=== PATIENT | male | born 1960 | race Two or more races ===

== ENCOUNTER 2024-01-19 09:01 | Day surgery (SDC) | payer MEDICAID ==
[2024-01-18 15:04] LABS: Basophils # (auto) 0.1 10 ^3/uL (0-0.2); Basophils % (auto) 0.8 % (0.0-2.0); Eosinophils # (auto) 0.1 10 ^3/uL (0-0.8); Eosinophils % (auto) 1.1 % (0.0-7.0); Hematocrit 44.4 % (41.0-53.0); Hemoglobin 14.9 g/dL (13.5-17.5); Lymphocytes # (auto) 2.1 10 ^3/uL (0.4-5.4); Lymphocytes % (auto) 19.8 % (10.0-50.0); Mean Corpuscular Hemoglobin 32.7 pg (28.0-32.0); Mean Corpuscular Hgb Conc. 33.6 g/dL (32.0-36.0); Mean Corpuscular Volume 97.3 fL (80.0-100.0); Monocytes # (auto) 0.7 10 ^3/uL (0-1.3); Monocytes % (auto) 7.2 % (0.0-12.0); Neutrophils # (auto) 7.4 10 ^3/uL (1.6-8.6); Neutrophils % (auto) 71.1 % (37.0-80.0); Red Blood Cells 4.57 10^6/uL (4.5-5.90); Red Cell Distribution Width 14.4 % (11.8-14.3); White Blood Cell 10.4 10^3/uL (4.4-10.8)
[2024-01-18 15:19] LABS: INR 0.99 (0.9-1.15); Partial Thromboplastin Time 26.2 SEC (24.5-34.5); Prothrombin Time 10.4 sec (9.3-11.8)
[2024-01-18 15:34] LABS: Alanine Aminotransferase 18 U/L (7-40); Albumin 4.4 g/dL (3.2-4.8); Alkaline Phosphatase 78 U/L (46-116); Anion Gap 4 (5-15); Aspartate Aminotransferase 22 U/L (13-40); BUN/Creatinine Ratio 9.9 (10.0-20.0); Bilirubin, Total 0.4 mg/dL (0.2-1.0); Blood Urea Nitrogen 9 mg/dL (9-23); Carbon Dioxide 27 mmol/L (20-30); Chloride 107 mmol/L (98-107); Glucose 90 mg/dL (74-106); Potassium 4.4 mmol/L (3.5-5.1); Sodium 138 mmol/L (136-145)
[2024-01-18 15:35] LABS: Total Protein 7.3 g/dL (5.7-8.2)
[~2024-01-19] VITALS: Ht 177.8 cm; Wt 77.1 kg
[~2024-01-19 09:01] MED LIST: B CO PO; DEXL60CA4 PO; LOSA100T58 PO
[2024-01-19] MEDS ORDERED: PHENYLEPHRINE HCL 10 MG/ML VL IV ONE (09:02)
[2024-01-19] MEDS ORDERED: MEPERIDINE HCL (25 MG/ML) 1ML VIAL ONE (10:33)
[2024-01-19] MEDS ORDERED: fentaNYL CITRATE 100 MCG/2 ML VL ONE (10:33)
[2024-01-19] MEDS ORDERED: MIDAZOLAM HCL 2MG/2ML 2ml VIAL (1mg/ml) ONE (10:33)
[2024-01-19] MEDS ORDERED: LIDOCAINE VISCOUS 2% 15ML UD ONE (10:34)
[2024-01-19] MEDS ORDERED: DexAMETHasone SOD PHOS 10MG/1ML VIAL INJ ONE (10:48)
[2024-01-19] MEDS ORDERED: PROPOFOL 10 MG/ML 20 ML IV ONE (10:48)
[2024-01-19 11:15] VITALS: PULSE 85; RESP 13; TEMP 98.5; O2SAT 97
[2024-01-19] MEDS ORDERED: ONDANSETRON HCL 4 MG/2 ML VIAL IV PRN (11:15)
[2024-01-19] MEDS ORDERED: LABETALOL HCL 5 MG/ML 4ML SYRINGE IV PRN (11:15)
[2024-01-19] MEDS ORDERED: HYDROmorphone HCL 2 MG/ML VL/or syr IV PRN (11:15)
[2024-01-19] MEDS ORDERED: MIDAZOLAM HCL 2MG/2ML 2ml VIAL (1mg/ml) IV PRN (11:15)
[2024-01-19] MEDS ORDERED: MORPHINE SULFATE 4 MG/ML SYR/VIAL IV PRN (11:15)
[2024-01-19] MEDS ORDERED: ePHEDrine SULFATE 50 MG/ML AMP IV PRN (11:15)
[2024-01-19 11:45] VITALS: BP 132/82; PULSE 86; RESP 10; O2SAT 98
== END 2024-01-19 12:00 | disposition home or self-care (01) ==
LOC: GI 09:01
PROVIDERS: ATTEND Internal Medicine Gastroenterology
DX: Z12.11 Encounter for screening for malignant neoplasm of colon (principal); Z85.038 Personal history of other malignant neoplasm of large intestine; D12.5 Benign neoplasm of sigmoid colon; K62.1 Rectal polyp; R13.14 Dysphagia, pharyngoesophageal phase; R10.13 Epigastric pain; K29.50 Unspecified chronic gastritis without bleeding; K20.90 Esophagitis, unspecified without bleeding; K29.80 Duodenitis without bleeding; K31.89 Other diseases of stomach and duodenum; K63.89 Other specified diseases of intestine; K21.9 Gastro-esophageal reflux disease without esophagitis; I10 Essential (primary) hypertension; G89.29 Other chronic pain; K44.9 Diaphragmatic hernia without obstruction or gangrene; E66.01 Morbid (severe) obesity due to excess calories; Z68.29 Body mass index [BMI] 29.0-29.9, adult; Z79.899 Other long term (current) drug therapy; Z93.3 Colostomy status; Z90.49 Acquired absence of other specified parts of digestive tract; Z86.73 Personal history of transient ischemic attack (TIA), and cerebral infarction without residual deficits; Z98.890 Other specified postprocedural states
CPT/HCPCS: 36415; 43239; 45380; 80053; 85025; 85610; 85730; 88305; 88312; 88342; J1100; J2175; J2250; J2371; J2704; J3010; J7030

== ENCOUNTER 2024-10-07 14:30 | Emergency (ER) | payer MEDICAID ==
[~2024-10-07] VITALS: Ht 177.8 cm; Wt 72.7 kg
[~2024-10-07 14:30] MED LIST changes: +LOSA-535 PO; -LOSA100T58 PO
--- NOTE | 2024-10-07 14:44 | ED.PDOC ---
Altered Mental Status HPI Comments 64 y.o male with PMH of HTN and colon cancer in remission, presents to the ED via EMS for an evaluation of an overdose. EMS reports patient was smoking Fentanyl earlier today with friend because he " was feeling down". Pt denied SI/HI. Friend called 911 when patient became unresponsive. On scene patient reportedly was unresponsive with agonal respirations, so received 3mg of Narcan IN administered by fire department. EMS reports by the time they arrived, patient was alert and oriented x 4 with no complaints. Upon ED arrival, patient remains asymptomatic. He denies any pain, recent illness, SI/HI or other sxs. Time Seen by MD: 14:28 Reviewed Notes: Nurses Notes, Special Makeup Fx Artist Instructor Notes, Medications, Allergies Allergies: Coded Allergies: NO KNOWN ALLERGIES (Unverified , 11/23/23) Home Meds Active Scripts Naloxone HCl (Narcan) 4 Mg/0.1 Ml Spr, 1-2 SPRAYS NA PRN PRN, #1 BOTTLE Prov:ROSARIO GRESHAM MD 10/07/24 Reported Medications Dexlansoprazole (Dexilant) 60 Mg Cap, 60 MG PO DAILY, CAP 01/17/24 Losartan Potassium (Losartan Potassium) 100 Mg Tab, 100 MG PO DAILY, TAB 01/17/24 B-Complex W/ C & Folic Acid (Dexifol 5 mg) 1 Tab Tab, 1 TAB PO DAILY, TAB 11/23/23 Information Source: Patient, Emergency Med Personnel Mode of Arrival: EMS Severity: Moderate Timing: Hours Duration: Since onset Quality: Decreased Alertness Recent: None History of: None Associated Signs and Symptoms: None Past Medical History PAST MEDICAL HISTORY: Cancer (colon), HTN Surgical History (Other): partial colon Family History Family History: Reviewed,noncontributory to illness Social History Smoker: Non-Smoker Alcohol: Denies ETOH Use Drugs: Denies Drug Use Lives In: Home Constitutional: denies: chills, diaphoresis, fatigue, fever, malaise, sweats, weakness, others EENTM: denies: blurred vision, double vision, ear bleeding, ear discharge, ear drainage, ear pain, ear ringing, eye pain, eye redness, hearing loss, mouth pain, mouth swelling, nasal discharge, nose bleeding, nose congestion, nose pain, photophobia, tearing, throat pain, throat swelling, voice changes, others Respiratory: denies: cough, hemoptysis, orthopnea, SOB at rest, shortness of breath, SOB with excertion, stridor, wheezing, others Cardiovascular: denies: chest pain, dizzy spells, diaphoresis, Dyspnea on exertion, edema, irregular heart beat, left arm pain, lightheadedness, palpitations, PND, syncope, others Gastrointestinal: denies: abdomen distended, abdominal pain, blood streaked bowels, constipated, diarrhea, dysphagia, difficulty swallowing, hematemesis, melena, nausea, poor appetite, poor fluid intake, rectal bleeding, rectal pain, vomiting, others Genitourinary: denies: burning, dysuria, flank pain, frequency, hematuria, incontinence, penile discharge, penile sore, pain, testicle pain, testicle swelling, urgency, others Neurological: denies: dizziness, fainting, headache, left sided numbness, left sided weakness, numbness, paresthesia, pre-existing deficit, right sided numbness, right sided weakness, seizure, speech problems, tingling, tremors, weakness, others Musculoskeletal: denies: back pain, gout, joint pain, joint swelling, muscle pain, muscle stiffness, neck pain, others Integumetry: denies: bruises, change in color, change in hair/nails, dryness, laceration, lesions, lumps, rash, wounds, others Allergic/Immunocompromised: denies: Difficulty Healing, Frequent Infections, Hives, Itching, others Hematologic/Lymphatic: denies: anemia, blood clots, easy bleeding, easy bruising, swollen glands, others Endocrine: denies: excessive hunger, excessive sweating, excessive thirst, excessive urination, flushing, intolerance to cold, intolerance to heat, unexplained weight gain, unexplained weight loss, others Psychiatric: denies: anxiety, bipolar disorder, depression, hopeless, panic disorder, schizophrenia, sleepless, suicidal, others All Other Systems: Reviewed and Negative Physical Exam General Appearance: No Apparent Distress, Normal HEENT: Normal ENT Inspection, PERRL/EOMI Neck: Full Range of Motion, Normal Inspection Respiratory: Lungs Clear, No Accessory Muscle Use, No Respiratory Distress, Normal Breath Sounds Cardiovascular: No Edema, No JVD, Regular Rate/Rhythm Breast Exam: Deferred Gastrointestinal: Non Tender, Soft Genitalia: Deferred Pelvic: Deferred Rectal: Deferred Extremities: Normal inspection, Normal range of motion, Non-tender, No pedal edema Neurologic: Alert, No Motor Deficits, Normal Affect, Normal Mood, No Sensory Deficits, Other (ambulatory without difficulty) Cerebellar Function: NOT DONE Reflexes: NOT DONE Skin: Dry, Normal Color, Warm Lymphatic: NOT DONE EKG EKG : Comments Sinus rhythm, rate 83, normal intervals, normal axis, possible incomplete right bundle-branch block, nonspecific T changes, occasional PVCs Was a procedure done? Was a procedure done?: No Differential Diagnosis (ALOC) Differential Diagnosis: Dehydration, Hypoglycemia, Encephalopathy, Hypoxemia, Drug Overdose, ETOH Intoxication X-Ray, Labs, Meds, VS Vital Signs Date Time Temp Pulse Resp B/P (MAP) Pulse Ox O2 Delivery O2 Flow Rate FiO2 10/07/24 14:48 83 10/07/24 14:35 97.8 84 14 158/100 (119) 98 Lab Test 10/07/24 15:25 Range/Units White Blood Count 10.5 4.4-10.8 10^3/uL Red Blood Count 5.18 4.5-5.90 10^6/uL Hemoglobin 17.7 H 13.5-17.5 g/dL Hematocrit 51.4 41.0-53.0 % Mean Corpuscular Volume 99.3 80.0-100.0 fL Mean Corpuscular Hemoglobin 34.2 H 28.0-32.0 pg Mean Corpuscular Hemoglobin Concent 34.4 32.0-36.0 g/dL Red Cell Distribution Width 14.4 H 11.8-14.3 % Platelet Count 185 140-450 10^3/uL Mean Platelet Volume 10.7 6.9-10.8 fL Neutrophils (%) (Auto) 76.0 37.0-80.0 % Lymphocytes (%) (Auto) 15.2 10.0-50.0 % Monocytes (%) (Auto) 7.8 0.0-12.0 % Eosinophils (%) (Auto) 0.3 0.0-7.0 % Basophils (%) (Auto) 0.7 0.0-2.0 % Neutrophils # (Auto) 8.0 1.6-8.6 10 ^3/uL Lymphocytes # (Auto) 1.6 0.4-5.4 10 ^3/uL Monocytes # (Auto) 0.8 0-1.3 10 ^3/uL Eosinophils # (Auto) 0 0-0.8 10 ^3/uL Basophils # (Auto) 0.1 0-0.2 10 ^3/uL Nucleated Red Blood Cells 0.1 % Sodium Level 141 136-145 mmol/L Potassium Level 4.1 3.5-5.1 mmol/L Chloride Level 105 98-107 mmol/L Carbon Dioxide Level 22 20-31 mmol/L Anion Gap 14 5-15 Blood Urea Nitrogen 6 L 9-23 mg/dL Creatinine 1.29 0.700-1.30 mg/dL Glomerular Filtration Rate Calc 63 >90 mL/min BUN/Creatinine Ratio 4.7 L 10.0-20.0 Serum Glucose 124 H 74-106 mg/dL Calcium Level 10.0 8.7-10.4 mg/dL Magnesium Level 2.5 1.6-2.6 mg/dL Troponin I High Sensitivity 3 L </=54 ng/L B-Type Natriuretic Peptide 30.78 0-100 pg/mL PROCEDURE(s): CXRP - CHEST PORTABLE REASON: fentanyl od ORDER NUMBER(s): [id number], ACCESSION NUMBER(s): [id number] CHEST RADIOGRAPH Indication:fentanyl od Technique: Single frontal view of the chest was obtained COMPARISON: None FINDINGS: Lines and Tubes: None Lungs: Clear Pleura: No effusion. No pneumothorax. Cardiomediastinal contours: Unremarkable Bones: Unremarkable IMPRESSION: No acute disease. X-Ray, Labs, Meds, VS Comment 64-year-old male with a history of hypertension and colon cancer in remission brought in by EMS after an accidental overdose on fentanyl Vitals unremarkable Exam unremarkable Chest x-ray unremarkable CBC, basic metabolic panel, BNP, troponin, magnesium remarkable for any abnormality of acute significance Urine drug screen pending Patient was initially asymptomatic in the ED, so was placed on a associate vice president with pulse oximetry. On re-evaluation at 4:30 p.m., patient was resting comfortably, alert, oriented, without new neurologic changes or respiratory depressed, and with stable vitals. Hospitalization was considered, however the patient had no evidence of neurologic changes or respiratory depression/distress during the 2 hour obse rvation. In the ED. I now no longer feel hospitalization is necessary. Patient appears stable for outpatient follow-up. Rx Narcan Time of 1ST Reevaluation: 14:40 Reevaluation 1ST: Unchanged Time of 2ND Reevaluation: 15:45 Reevaluation 2ND: Unchanged Time of 3RD Reevaluation: 16:30 Reevaluation 3RD: Unchanged Patient Education/Counseling: Diagnosis, Treatment, Prognosis Family Education/Counseling: No Family Present Departure 1 Departure Time of Disposition: 16:30 Impression: Primary Impression: Accidental fentanyl overdose Qualified Codes: T40.411A - Poisoning by fentanyl or fentanyl analogs, a ccidental (unintentional), initial encounter Disposition: HOME / SELF CARE / HOMELESS Condition: Stable Additional Instructions: Blood tests and chest x-ray were unremarkable. Follow-up with your primary doctor in 1-2 days. I have prescribed Narcan, the reversal agent for opiate overdoses. e-Prescriptions Naloxone HCl (Narcan) 4 Mg/0.1 Ml Spr 1-2 SPRAYS NA PRN PRN, #1 BOTTLE Prov: ROSARIO GRESHAM MD 10/07/24 Discharged With: Self Critical Care Note Critical Care Time?: No Stability Stability form required: No I personally scribed for ROSARIO GRESHAM MD ([email or web address]) on 10/07/24 at 14:44. Electronically submitted by Sharonda Grider ([facility]). ROSARIO GRESHAM MD Oct 07, 2024 14:44
--- NOTE | 2024-10-07 14:59 | ECG ---
[facility] Test Date: 2024-10-07 Test Time: 14:48:55 Pat Name: BRANDI QUINN Department: ER Room: Gender: M Project Analyst: BOY : 1960 Requested By: ROSARIO MARRERO Order Number: [id number] Reading MD: Measurements Intervals [place] Rate: 83 P: 144 IN: 142 QRS: 22 QRSD: 105 T: 117 QT: 385 QTc: 453 Interpretive Statements Sinus or ectopic atrial rhythm Ventricular bigeminy Left atrial enlargement Borderline low voltage, extremity leads RSR' in V1 or V2, probably normal variant Nonspecific T abnormalities, lateral leads Please click the below link to view image of tracing.
--- NOTE | 2024-10-07 15:25 | DVH ---
CHEST RADIOGRAPH Indication:fentanyl od Technique: Single frontal view of the chest was obtained COMPARISON: None FINDINGS: Lines and Tubes: None Lungs: Clear Pleura: No effusion. No pneumothorax. Cardiomediastinal contours: Unremarkable Bones: Unremarkable IMPRESSION: No acute disease.
[2024-10-07 15:40] LABS: Basophils # (auto) 0.1 10 ^3/uL (0-0.2); Eosinophils # (auto) 0 10 ^3/uL (0-0.8); Hemoglobin 17.7 g/dL (13.5-17.5); Lymphocytes # (auto) 1.6 10 ^3/uL (0.4-5.4); Mean Corpuscular Volume 99.3 fL (80.0-100.0); Red Cell Distribution Width 14.4 % (11.8-14.3)
[2024-10-07 15:41] LABS: Basophils % (auto) 0.7 % (0.0-2.0); Eosinophils % (auto) 0.3 % (0.0-7.0); Hematocrit 51.4 % (41.0-53.0); Lymphocytes % (auto) 15.2 % (10.0-50.0); Mean Corpuscular Hemoglobin 34.2 pg (28.0-32.0); Mean Corpuscular Hgb Conc. 34.4 g/dL (32.0-36.0); Monocytes # (auto) 0.8 10 ^3/uL (0-1.3); Monocytes % (auto) 7.8 % (0.0-12.0); Nucleated Red Blood Cells % 0.1 %; Platelet Count (auto) 185 10^3/uL (140-450); Red Blood Cells 5.18 10^6/uL (4.5-5.90); White Blood Cell 10.5 10^3/uL (4.4-10.8)
[2024-10-07] MEDS ORDERED: NALO4SPR2 (15:47)
[2024-10-07 16:19] LABS: Chloride 105 mmol/L (98-107); Potassium 4.1 mmol/L (3.5-5.1); Sodium 141 mmol/L (136-145)
[2024-10-07 16:20] LABS: Anion Gap 14 (5-15); Carbon Dioxide 22 mmol/L (20-31)
[2024-10-07 16:25] LABS: Glucose 124 mg/dL (74-106)
[2024-10-07 16:26] LABS: BUN/Creatinine Ratio 4.7 (10.0-20.0); Blood Urea Nitrogen 6 mg/dL (9-23)
[2024-10-07 16:56] VITALS: BP 122/79; PULSE 80; RESP 17; TEMP 97.7; O2SAT 97
== END 2024-10-07 17:00 | disposition home or self-care (01) ==
LOC: EDUNIT# 14:30 → EDBD 14:30 → ER 14:38
DX: T40.411A Poisoning by fentanyl or fentanyl analogs, accidental (unintentional), initial encounter (principal); I10 Essential (primary) hypertension; Z79.899 Other long term (current) drug therapy; Z85.038 Personal history of other malignant neoplasm of large intestine; Y92.89 Other specified places as the place of occurrence of the external cause
CPT/HCPCS: 36415; 71045; 80048; 83735; 83880; 84484; 85025; 93005

== ENCOUNTER 2025-02-05 23:41 | Emergency (ER) | payer MEDICAID ==
[~2025-02-05] VITALS: Ht 177.8 cm; Wt 77.3 kg
[~2025-02-05 23:41] MED LIST changes: +NALO4SPR2
--- NOTE | 2025-02-05 23:54 | ED.PDOC ---
History of Present Illness HPI Comments 65 y/o M is BIBA for c/o generalized body pain and laceration to [id number] s/p mechanical fall and injury and alcohol intoxication, today. Per EMS report, patient is stated to have been drinking copious amounts of alcohol since 1800 and have sustained a witnessed fall without LOC, this evening. Patient was noted to have been found with a blood glucose of 107, with all remaining vital stable and within normal limits along with negative mLAPSS and PERRL. Patient reports no prior symptoms or current additional injuries, weakness, numbness, or tingling at this time. Per [facility] medical records, patient has a history of melanoma and in-remission colon CA s/p resection and HTN. Time Seen by MD: 23:40 Primary Care Provider: " I DON'T HAVE ONE" Reviewed Notes: Nurses Notes, Medications, Allergies Allergies: Coded Allergies: NO KNOWN ALLERGIES (Unverified , 11/23/23) Home Meds Active Scripts Naloxone HCl (Narcan) 4 Mg/0.1 Ml Spr, 1-2 SPRAYS NA PRN PRN, #1 BOTTLE Prov:ROSARIO GRESHAM MD 10/07/24 Reported Medications Dexlansoprazole (Dexilant) 60 Mg Cap, 60 MG PO DAILY, CAP 01/17/24 Losartan Potassium (Losartan Potassium) 100 Mg Tab, 100 MG PO DAILY, TAB 01/17/24 B-Complex W/ C & Folic Acid (Dexifol 5 mg) 1 Tab Tab, 1 TAB PO DAILY, TAB 11/23/23 Information Source: Patient, Emergency Med Personnel Mode of Arrival: EMS Severity: Moderate Timing: Hours Duration: Since onset Prehospital treatment: 12 Lead EKG, Accucheck, Watch Crystal Cutter Past Medical History PAST MEDICAL HISTORY: Cancer (colon, in remission, melanoma), HTN Surgical History (Other): colon resection Family History Family History: Reviewed,noncontributory to illness Social History Smoker: Non-Smoker Alcohol: Heavy Drugs: Denies Drug Use Lives In: Home All Other Systems: Reviewed and Negative (negative unless otherwise stated in HPI) Physical Exam General Appearance: No Apparent Distress, Normal HEENT: Normal ENT Inspection, Pharynx Normal, TMs Normal Neck: Full Range of Motion, Non-Tender, Normal, Normal Inspection Respiratory: Chest Non-Tender, Lungs Clear, No Accessory Muscle Use, No Respiratory Distress, Normal Breath Sounds Cardiovascular: No Edema, No JVD, No Murmur, No Gallop, Normal Peripheral Pulses, Regular Rate/Rhythm Breast Exam: Deferred Gastrointestinal: No Organomegaly, Non Tender, No Pulsatile Mass, Normal Bowel Sounds, Soft Genitalia: Deferred Pelvic: Deferred Rectal: Deferred Extremities: No calf tenderness, Normal capillary refill, Normal inspection, Normal range of motion, Non-tender, No pedal edema Musculoskeletal : Apperance: Normal Neurologic: Alert, legal recruiter II-XII nml as Tested, No Motor Deficits, Normal Affect, Normal Mood, No Sensory Deficits Cerebellar Function: Normal Reflexes: Normal Skin: Dry, Normal Color, Warm Lymphatic: No Adenopathy Was a procedure done? Was a procedure done?: No Differential Dx Considerations may include: closed head injury, fractures, intoxication, substance abuse, bruising, contusions, lacerations, abrasions X-Ray, Labs, Meds, VS Vital Signs Date Time Temp Pulse Resp B/P (MAP) Pulse Ox O2 Delivery O2 Flow Rate FiO2 02/06/25 12:00 84 25 110/75 (87) 96 02/06/25 10:00 67 11 98 Room Air* 0 21 02/06/25 10:00 97.9 67 11 122/73 (89) 98 97.9 02/06/25 08:55 18 Room Air* 0 21 02/06/25 00:13 78 18 98 Room Air* 0 21 02/06/25 00:13 97.8 78 18 142/72 (95) 98 97.8 02/05/25 23:46 97.8 78 18 142/72 (95) 98 97.8 Lab Test 02/06/25 08:15 02/06/25 02:30 Range/Units Plasma/Serum Blood Alcohol 121.1 H 188.7 H <10 mg/dL White Blood Count 10.4 4.4-10.8 10^3/uL Red Blood Count 4.97 4.5-5.90 10^6/uL Hemoglobin 17.4 13.5-17.5 g/dL Hematocrit 49.1 41.0-53.0 % Mean Corpuscular Volume 98.8 80.0-100.0 fL Mean Corpuscular Hemoglobin 35.0 H 28.0-32.0 pg Mean Corpuscular Hemoglobin Concent 35.4 32.0-36.0 g/dL Red Cell Distribution Width 14.0 11.8-14.3 % Platelet Count 111 L 140-450 10^3/uL Mean Platelet Volume 10.9 H 6.9-10.8 fL Neutrophils (%) (Auto) 56.9 37.0-80.0 % Lymphocytes (%) (Auto) 27.8 10.0-50.0 % Monocytes (%) (Auto) 11.5 0.0-12.0 % Eosinophils (%) (Auto) 1.2 0.0-7.0 % Basophils (%) (Auto) 2.6 H 0.0-2.0 % Neutrophils # (Auto) 5.9 1.6-8.6 10 ^3/uL Lymphocytes # (Auto) 2.9 0.4-5.4 10 ^3/uL Monocytes # (Auto) 1.2 0-1.3 10 ^3/uL Eosinophils # (Auto) 0.1 0-0.8 10 ^3/uL Basophils # (Auto) 0.3 H 0-0.2 10 ^3/uL Nucleated Red Blood Cells 0.3 % Platelet Estimate Decreased Clumped Platelets Few Large Platelets Few Sodium Level 139 136-145 mmol/L Potassium Level 3.3 L 3.5-5.1 mmol/L Chloride Level 104 98-107 mmol/L Carbon Dioxide Level 23 20-31 mmol/L Anion Gap 12 5-15 Blood Urea Nitrogen < 5 L 9-23 mg/dL Creatinine 0.87 0.700-1.30 mg/dL Glomerular Filtration Rate Calc 97 >90 mL/min BUN/Creatinine Ratio 5.7 L 10.0-20.0 Serum Glucose 76 74-106 mg/dL Calcium Level 9.6 8.7-10.4 mg/dL Current Medications Medications (Trade) Dose Ordered Sig/Brad Route Start Time Stop Time Status Last Admin Sodium Chloride 1,000 ml @ 1,000 mls/hr Q1H ONCE IV 02/06/25 10:00 02/06/25 10:59 DC 02/06/25 10:27 Patient alert. Alcohol in his system. Vitals stable. Answering questions. Establish intravenous access. Was given fluids. Moving all extremities. No sign of any injuries. CT of the head does not show any acute process. Denies suicidal or homicidal ideation. Counseled patient on effects of drinking alcohol for 15 minutes. Explained to the patient. Was told to follow up with his primary care physician. Was told to come back if there is any problem. Time of 1ST Reevaluation: 00:10 Reevaluation 1ST: Unchanged Time of 2ND Reevaluation: 15:17 Reevaluation 2ND: Improved (Doing well) Patient Education/Counseling: Diagnosis, Treatment Family Education/Counseling: No Family Present Additional Information Previous visit documents reviewed: October 07, 2024 encounter for accidental fentanyl overdose The following tests were ordered, and results were reviewed by me: Additional Information was gathered from interviewing the following independent historians: EMS I reviewed and agreed with the following test results read by other providers: CXR I discussed treatment and results with medical personnel and: Patient Departure 1 Departure Time of Disposition: 15:17 Impression: Primary Impression: Alcohol abuse Disposition: 01 HOME / SELF CARE / HOMELESS Condition: Good Discharged With: Self Critical Care Note Critical Care Time?: No Stability Stability form required: No Heart Score Heart Score: Heart Score Response (Comments) Value History N/A 0 EKG N/A 0 Age N/A 0 Risk Factors N/A 0 Troponin N/A 0 Total 0 I personally scribed for BARBARA MARIO MD ([email or web address]) on 02/05/25 at 23:54. Electronically submitted by Delvin Dang ([email or web address]). BARBARA MARIO MD Feb 05, 2025 23:54 JENNY LINDQUIST MD Feb 06, 2025 15:19
[2025-02-06 00:13] VITALS: PULSE 78; RESP 18; O2SAT 98
--- NOTE | 2025-02-06 00:45 | DVH ---
CLINICAL HISTORY: intox, fall TECHNIQUE: Helical imaging carried out from skull base to vertex without intravenous contrast. This e xam was performed according to our departmental dose optimization program. Up-to-date CT equipment an d radiation dose reduction techniques are utilized as appropriate. CTDIVol: 59.26 mGy DLP: 1186.88 mGy-cm WID: COMPARISON: None FINDINGS: There is a small lateral left periorbital soft tissue contusion / hematoma. Mild cerebral volume loss with concordant prominence of the subarachnoid spaces and ventricles There is no midline shift or mass effect. The strange white matter interfaces are maintained. The basal ciste rns are patent. There is no evidence of acute intracranial hemorrhage or extra-axial fluid collection . The mastoid air cells and visualized paranasal sinuses are well-aerated. IMPRESSION: 1. No acute intracranial abnormality. 2. Small Lateral left periorbital soft tissue contusion / hematoma
[2025-02-06 02:50] LABS: Eosinophils # (auto) 0.1 10 ^3/uL (0-0.8)
[2025-02-06 02:54] LABS: Basophils # (auto) 0.3 10 ^3/uL (0-0.2); Basophils % (auto) 2.6 % (0.0-2.0); Eosinophils % (auto) 1.2 % (0.0-7.0); Hematocrit 49.1 % (41.0-53.0); Hemoglobin 17.4 g/dL (13.5-17.5); Lymphocytes # (auto) 2.9 10 ^3/uL (0.4-5.4); Lymphocytes % (auto) 27.8 % (10.0-50.0); Mean Corpuscular Hgb Conc. 35.4 g/dL (32.0-36.0); Mean Corpuscular Volume 98.8 fL (80.0-100.0); Monocytes # (auto) 1.2 10 ^3/uL (0-1.3); Monocytes % (auto) 11.5 % (0.0-12.0); Neutrophils # (auto) 5.9 10 ^3/uL (1.6-8.6); Neutrophils % (auto) 56.9 % (37.0-80.0); Nucleated Red Blood Cells % 0.3 %; Platelet Count (auto) 111 10^3/uL (140-450); Red Blood Cells 4.97 10^6/uL (4.5-5.90); White Blood Cell 10.4 10^3/uL (4.4-10.8)
[2025-02-06 02:59] LABS: Chloride 104 mmol/L (98-107); Sodium 139 mmol/L (136-145)
[2025-02-06 03:00] LABS: Anion Gap 12 (5-15); Carbon Dioxide 23 mmol/L (20-31); Potassium 3.3 mmol/L (3.5-5.1)
[2025-02-06 03:01] LABS: Calcium 9.6 mg/dL (8.7-10.4)
[2025-02-06 03:03] LABS: Large Platelets FEW; Platelet Estimate Decreased
[2025-02-06 03:05] LABS: Glucose 76 mg/dL (74-106)
[2025-02-06 03:06] LABS: Blood Alcohol 188.7 mg/dL (<10)
[2025-02-06 03:43] LABS: BUN/Creatinine Ratio 5.7 (10.0-20.0); Blood Urea Nitrogen < 5 mg/dL (9-23)
[2025-02-06 08:55] VITALS: RESP 18
[2025-02-06 10:00] VITALS: PULSE 67; RESP 11; TEMP 97.9; O2SAT 98
[2025-02-06] MEDS: SODIUM CHLORIDE 0.9% 1,000 ML IV ONE (10:27)
[2025-02-06 14:30] VITALS: BP 121/73; PULSE 62; RESP 16; O2SAT 96
[2025-02-06] MEDS: THIAMINE 100mg/ml INJ (200mg/2ml VIAL) IV ONE (15:34)
== END 2025-02-06 15:33 | disposition home or self-care (01) ==
LOC: EDBD 23:41 → ER 23:41
DX: F10.10 Alcohol abuse, uncomplicated (principal); I10 Essential (primary) hypertension; Z79.899 Other long term (current) drug therapy; Z85.038 Personal history of other malignant neoplasm of large intestine; Z85.820 Personal history of malignant melanoma of skin; W19.XXXA Unspecified fall, initial encounter; Y93.89 Activity, other specified; Y92.89 Other specified places as the place of occurrence of the external cause; Y99.8 Other external cause status; Y90.6 Blood alcohol level of 120-199 mg/100 ml
CPT/HCPCS: 36415; 70450; 80048; 80320; 85025; 96360; 99285; J7030